=== PATIENT | female | born 1960 | race Caucasian/White ===

== ENCOUNTER 2016-07-23 22:17 | Observation (INO) | payer BC ==
[~2016-07-23] VITALS: Ht 157.5 cm; Wt 68.6 kg
[2016-07-23] MEDS ORDERED: TRAVATAN Z 2.52.5 ML OU (22:24)
[2016-07-23] MEDS ORDERED: MULTI VITAMINS1 TAB PO (22:24)
[2016-07-23] MEDS ORDERED: L-LYSINE500 M1 (22:24)
[2016-07-23] MEDS ORDERED: NATURAL MAGNES200 MG PO (22:25)
[2016-07-23] MEDS ORDERED: NATURAL ZINC50 MG PO (22:25)
[2016-07-24 00:09] LABS: HEMATOCRIT 34.9 % (37.0-47.0)
[2016-07-24 01:36] VITALS: BP 92/42; PULSE 64; TEMP 98.7
[2016-07-24 01:42] VITALS: BP 92/42; PULSE 64; TEMP 98.7
[2016-07-24 05:48] VITALS: BP 107/52; PULSE 69; TEMP 97.1
== END 2016-07-24 10:03 | disposition home health service (06) ==
LOC: COL.ER 22:17 → SURG 23:51
PROVIDERS: Surgery
DX: S06.0X1A Concussion with loss of consciousness of 30 minutes or less, initial encounter (principal); S01.01XA Laceration without foreign body of scalp, initial encounter; H40.9 Unspecified glaucoma; W11.XXXA Fall on and from ladder, initial encounter
CPT/HCPCS: G0378